=== PATIENT | male | born 1955 | race Caucasian/White ===

== ENCOUNTER 2024-01-22 10:13 | Emergency (ER) | payer OTHER ==
[2024-01-22 10:35] VITALS: BP 121/67; RESP 18; TEMP 99.1
--- NOTE | 2024-01-22 11:04 | ED ---
Back Pain HPI - General Chief Complaint: Back Pain/Injury Stated Complaint: Back pain Time Seen by Provider: 01/22/24 10:36 Source: family Limitations: no limitations - History of Present Illness Initial Comments: The patient is an otherwise healthy presents emergency room complaints of severe right lower back pain. Patient states that the pain was of gradual onset that started on January 09. He states that he was given a steroid Dosepak to help with the pain which it initially did hope with. Patient states that 3 days ago he knelt down on the floor and felt immediate severe pain. He has had severe pain since. The pain is in the right lower back and radiates down the right leg. He describes the pain down the leg as a burning pain. He denies any saddle anesthesia or loss of bowel or bladder control. He denies any foot drop. The pain is worse with movement especially sitting. Patient has a history of lower back pain and previous lumbar surgery over 10 years ago in [place]. He has not had any complications since and did not have chronic pain after the surg bc. Patient denies any chest pain palpitations or shortness breath. He denies any fevers, dysuria hematuria urinary frequency. He has had kidney stones in the past but states this feels different. Patient has an appointment with clinical product specialist tomorrow. He has been taking tramadol without improvement, Naprosyn and took a few doses of his 's gabapentin. The gabapentin seen to help with the pain more than the tramadol at times. Patient denies any palpable abdominal mass. - Related Data Home Medications Medication Instructions Recorded Confirmed Cholecalciferol [Vitamin D3 (25 25 mcg PO DAILY 01/22/24 01/22/24 Mcg = 1000 Iu)] Magnesium 250 mg PO DAILY 01/22/24 01/22/24 traMADol HCL 50 mg PO Q6H PRN 01/22/24 01/22/24 Previous Rx's Medication Instructions Recorded Cyclobenzaprine [Flexeril] 10 mg PO TID PRN #20 tab 01/22/24 Gabapentin [Neurontin] 100 mg PO TID 5 Days #15 cap 01/22/24 Lidocaine 5% Patch [Lidoderm] 1 each TP DAILY #10 patch 01/22/24 Naproxen [Naprosyn] 250 mg PO BID #48 tab 01/22/24 oxyCODONE-APAP 5-325MG [Percocet 1 tab PO Q6HR PRN 3 Days #12 tab 01/22/24 5-325 mg] Allergies Allergy/AdvReac Type Severity Reaction Status Date / Time meperidine [From Demerol] Allergy Rash/Hives Verified 01/22/24 13:49 Review of Systems ROS Statement: Those systems with pertinent positive or pertinent negative responses have been documented in the HPI. ROS Other: All systems not noted in ROS Statement are negative. Past Medical History Past Medical History: No Reported History History of Any Multi-Drug Resistant Organisms: None Reported Past Surgical History: Orthopedic Surgery Past Psychological History: No Psychological Hx Reported Smoking Status: Never smoker Past Alcohol Use History: None Reported Past Drug Use History: None Reported General Exam Limitations: no limitations General appearance: alert, in no apparent distress Head exam: Present: atraumatic Eye exam: Present: normal appearance, PERRL ENT exam: Present: normal exam Neck exam: Present: full ROM Respiratory exam: Present: normal lung sounds bilaterally Cardiovascular Exam: Present: regular rate GI/Abdominal exam: Present: soft Extremities exam: Present: full ROM Back exam: Present: tenderness (Pain over the right lumbar paraspinal muscle and right SI joint without any rash erythema or ecchymosis. Pain is worse with right straight leg test. EHL intact bilaterally. Neurologically intact), other Neurological exam: Present: alert, oriented X3, CN II-XII intact Psychiatric exam: Present: normal affect, normal mood Skin exam: Present: warm, dry Course Vital Signs 01/22/24 01/22/24 01/22/24 10:16 11:33 11:46 Temperature 99.1 F Pulse Rate 142 H 76 74 Respiratory 18 Rate Blood Pressure 121/67 O2 Sat by Pulse 98 95 90 L Oximetry - Reevaluation(s) Reevaluation #1: 01/22/24 1302 Patient is feeling much better after the IV Dilaudid. His heart rate significantly improved in the 70s with pain control. He was feeling well enough to want to eat after the pain medicine. Patient is neurologically intact. EHL is intact. He denies any saddle anesthesia or loss of bowel or bladder control therefore no MRI was ordered at today's visit. I did discuss lab and imaging results with patient. Patient does not want a CT of the abdomen or kidneys as he does not feel as though it is a kidney stone. He has had an x-ray in the past on January 09 for similar pain which did not show anything significant. He has an appointment with the clinical product specialist tomorrow and is hoping to have an MRI at the facility tomorrow. I did discuss signs return to the emergency room with the patient and . Discussed returning for any neurological symptoms or further complications.). Celexa history significant limitations. Given stretches to help with the sciatica as well. Patient's symptoms are and disposition were fully discussed with attending ED physician Dr. Mckeon today. Medical Decision Making - Medical Decision Making Was pt. sent in by a medical professional or institution (, PA, [employer], urgent care, hospital, or [facility]...) When possible be specific @ -[No] Did you speak to anyone other than the patient for history (EMS, parent, family, police, friend...)? What history was obtained from this source @ - at bedside Did you review nursing and triage notes (agree or disagree)? Why? @ -[I reviewed and agree with nursing and triage notes] Were old charts reviewed (outside hosp., previous admission, EMS record, old EKG, old radiological studies, urgent care reports/EKG's, [facility] records)? Report findings @ -[No old charts were reviewed] Differential Diagnosis (chest pain, altered mental status, abdominal pain women, abdominal pain men, vaginal bleeding, weakness, fever, dyspnea, syncope, headache, dizziness, GI bleed, back pain, seizure, CVA, palpatations, mental health, musculoskeletal)? @ -[Tachycardia, back pain, kidney stone, sciatica, muscle spasms, electrolyte abnormality UTI EKG interpreted by me (3pts min.). @ -[As above] X-rays interpreted by me (1pt min.). @ -[None done] CT interpreted by me (1pt min.). @ -[None done] U/S interpreted by me (1pt. min.). @ -[None done] What testing was considered but not performed or refused? (CT, X-rays, U/S, lab s)? Why? @ -[See however patient refused CT as he did not feel as though he had a kidney stone and had an x-ray of the lumbar spine on January 09 at minimal pain and there is no significant changes. He prefers to follow-up with ortho have an outpatient MRI. What meds were considered but not given or refused? Why? @ -[None] Did you discuss the management of the patient with other professionals (professionals i.e. Dr., PA, [employer], lab, RT, psych nurse, family welfare social work professor, documentation designer, teacher, property and supply officer, registered nurse hh case manager)? Give summary @ -Discussed management of this patient with attending ED physician Dr. Inocencia holley today. Was smoking cessation discussed for >3mins.? @ -[No] Was critical care preformed (if so, how long)? @ -[No] Were there social determinants of health that impacted care today? How? (Homelessness, low income, unemployed, alcoholism, drug addiction, transportation, low edu. Level, literacy, decrease access to med. care, longterm, rehab)? @ -[No] Was there de-escalation of care discussed even if they declined (Discuss DNR or withdrawal of care, Hospice)? DNR status @ -[No] What co-morbidities impacted this encounter? (DM, HTN, Smoking, COPD, CAD, Cancer, CVA, ARF, Chemo, Hep., AIDS, mental health diagnosis, sleep apnea, morbid obesity)? @ -[None] Was patient admitted / discharged? Hospital course, mention meds given and route, prescriptions, significant lab abnormalities, going to OR and other pertinent info. @ -[Patient is feeling much better with pain control. His heart rate significantly improved with pain control. I discussed lab results with the patient and follow-up with the PCP to have kidney function and blood sugars reevaluated for further testing. Discussed hydration. I discussed following up at his appointment tomorrow with clinical product specialist for further pain control and suspected MRI. Again patient did not want the CT done at this time as he felt as though is not necessary. I agree with this and they were given signs return to emergency room for worsening complicated. I discussed pain control at home and] included stretches that were shown in the emergency room. He understands he is not to work or trouble taking pain medication or muscle relaxer and history.). These medications not given at the same time. We discu ssed signs return to the emergency room including but not limited to foot drop, saddle anesthesia or new concerning symptoms. Undiagnosed new problem with uncertain prognosis? @ -[No] Drug Therapy requiring intensive monitoring for toxicity (Heparin, Nitro, Insulin, Cardizem)? @ -[No] Were any procedures done? @ -[No] Diagnosis/symptom? @ -Back pain, back spasms, sciatica, lumbar radiculopathy, renal insufficiency Acute, or Chronic, or Acute on Chronic? @ -[Acute Uncomplicated (without systemic symptoms) or Complicated (systemic symptoms)? @ -[default] Side effects of treatment? @ -[No] Exacerbation, Progression, or Severe Exacerbation? @ -[Exacerbation Poses a threat to life or bodily function? How? (Chest pain, USA, OR, pneumonia, PE, COPD, DKA, ARF, appy, cholecystitis, CVA, Diverticulitis, Homicidal, Suicidal, threat to staff... and all critical care pts) @ -[No] - Lab Data Result diagrams: 01/22/24 11:26 01/22/24 11:26 Lab Results 01/22/24 01/22/24 01/22/24 Range/Units 11:26 11:26 11:26 WBC 15.0 H (3.8-10.6) k/uL RBC 5.07 (4.30-5.90) m/uL Hgb 15.5 (13.0-17.5) gm/dL Hct 46.3 (39.0-53.0) % MCV 91.3 (80.0-100.0) fL MCH 30.7 (25.0-35.0) pg MCHC 33.6 (31.0-37.0) g/dL RDW 13.2 (11.5-15.5) % Plt Count 234 (150-450) k/uL MPV 7.6 Neutrophils % 89 % Lymphocytes % 7 % Monocytes % 3 % Eosinophils % 0 % Basophils % 0 % Neutrophils # 13.4 H (1.3-7.7) k/uL Lymphocytes # 1.0 (1.0-4.8) k/uL Monocytes # 0.5 (0-1.0) k/uL Eosinophils # 0.0 (0-0.7) k/uL Basophils # 0.0 (0-0.2) k/uL Sodium 136 L (137-145) mmol/L Potassium 3.7 (3.5-5.1) mmol/L Chloride 103 (98-107) mmol/L Carbon Dioxide 23 (22-30) mmol/L Anion Gap 10 mmol/L BUN 25 H (9-20) mg/dL Creatinine 1.32 H (0.66-1.25) mg/dL Est GFR (CKD-EPI)AfAm 64 (>60 ml/min/1.73 sqM) Est GFR (CKD-EPI)NonAf 55 (>60 ml/min/1.73 sqM) Glucose 143 H (74-99) mg/dL Calcium 10.3 H (8.4-10.2) mg/dL Magnesium 1.8 (1.6-2.3) mg/dL Total Bilirubin 0.6 (0.2-1.3) mg/dL AST 28 (17-59) U/L ALT 29 (4-49) U/L Alkaline Phosphatase 108 (38-126) U/L Total Protein 6.6 (6.3-8.2) g/dL Albumin 3.9 (3.5-5.0) g/dL Urine Color Light Yellow Urine Appearance Clear (Clear) Urine pH 6.0 (5.0-8.0) Ur Specific Mchenry 1.019 (1.001-1.035) Urine Protein Trace H (Negative) Urine Glucose (UA) 3+ H (Negative) Urine Ketones Trace H (Negative) Urine Blood Trace H (Negative) Urine Nitrite Negative (Negative) Urine Bilirubin Negative (Negative) Urine Urobilinogen <2.0 (<2.0) mg/dL Ur Leukocyte Esterase Negative (Negative) Urine RBC 3 (0-5) /hpf Urine WBC 1 (0-5) /hpf Ur Squamous Epith Cells <1 (0-4) /hpf Urine Bacteria Rare H (None) /hpf Urine Mucus Few H (None) /hpf - EKG Data -: EKG Interpreted by [facility] - Radiology Data Radiology results: report reviewed, image reviewed Disposition Clinical Impression: Back pain, Sciatica, Renal insufficiency Disposition: HOME SELF-CARE Condition: Good Instructions (If sedation given, give patient instructions): Sciatica (ED), Acute Low Back Pain (ED), Lumbar Radiculopathy (ED), Lower Back Exercises (ED), Hamstring Exercises (ED) Additional Instructions: DO NOT WORK OR DRIVE WHILE TAKING PAIN MEDICATION OR MUSCLE RELAXER STAGGER THE DOSING OF PERCOCET AND FLEXERIL. DO NOT TAKE THEM AT THE SAME TIME RETURN FOR ANY LOSS OF BOWEL OR BLADDER CONTROL, FEVERS, FOOT DROP, UNCONTROLLED PAIN OR NEW CONCERNING SYMPTOMS. Prescriptions: Cyclobenzaprine [Flexeril] 10 mg PO TID PRN #20 tab PRN Reason: Muscle Spasm Lidocaine 5% Patch [Lidoderm] 1 each TP DAILY #10 patch Naproxen [Naprosyn] 250 mg PO BID #48 tab Gabapentin [Neurontin] 100 mg PO TID 5 Days #15 cap oxyCODONE-APAP 5-325MG [Percocet 5-325 mg] 1 tab PO Q6HR PRN 3 Days #12 tab PRN Reason: Pain Is patient prescribed a controlled substance at d/c from ED?: Yes When asked, does pt state using other controlled substances?: No If prescribed controlled substance>3 days was MAPS reviewed?: Prescribed <3 Days If opioid is for acute pain is fill amount 7 days or less?: No If Rx opioid, was Start Talking consent form obtained?: No Referrals: None,Stated [Primary Care Provider] - 1-2 days Scooby Lees MD [STAFF PHYSICIAN] - 1-2 days Time of Disposition: 13:48
[2024-01-22] MEDS: HYDROmorphone 1 MG/ML 1 ML SYRINGE IVP STA ×2 (11:23→14:41)
[2024-01-22] MEDS: SODIUM CHLORIDE 0.9% 500 ML 500 ML IV STA (11:27)
[2024-01-22 11:42] LABS: Basophils % (A) 0 %; Eosinophils % (A) 0 %; HCT 46.3 % (39.0-53.0); HGB 15.5 gm/dL (13.0-17.5); Lymphocytes % (A) 7 %; MCH 30.7 pg (25.0-35.0); MCHC 33.6 g/dL (31.0-37.0); MCV 91.3 fL (80.0-100.0); Mean Platelet Volume 7.6; Monocytes # (A) 0.5 k/uL (0-1.0); Monocytes % (A) 3 %; Neutrophils # (A) 13.4 k/uL (1.3-7.7); Neutrophils % (A) 89 %; Platelet Count 234 k/uL (150-450); RBC 5.07 m/uL (4.30-5.90); RDW 13.2 % (11.5-15.5)
[2024-01-22 11:54] LABS: ALT 29 U/L (4-49); AST 28 U/L (17-59); African American GFR (CKD) 64 (>60 ml/min/1.73 sqM); Albumin 3.9 g/dL (3.5-5.0); Alkaline Phosphatase 108 U/L (38-126); Anion Gap 10 mmol/L; Blood Urea Nitrogen 25 mg/dL (9-20); Calcium 10.3 mg/dL (8.4-10.2); Carbon Dioxide 23 mmol/L (22-30); Chloride 103 mmol/L (98-107); Glucose 143 mg/dL (74-99); Magnesium 1.8 mg/dL (1.6-2.3); Non-African American GFR(CKD) 55 (>60 ml/min/1.73 sqM); Potassium 3.7 mmol/L (3.5-5.1); Sodium 136 mmol/L (137-145); Total Bilirubin 0.6 mg/dL (0.2-1.3); Total Protein 6.6 g/dL (6.3-8.2)
[2024-01-22 12:11] VITALS: PULSE 74
[2024-01-22 12:49] LABS: Appearance,Urine Clear (Clear); Bacteria,Urine Rare /hpf; Bilirubin,Urine Negative (Negative); Blood,Urine Trace (Negative); Color,Urine Light Yellow; Glucose,Urine (UA) 3+ (Negative); Ketones,Urine Trace (Negative); Leukocyte Esterase,Urine Negative (Negative); Mucus,Urine Few /hpf; Nitrite,Urine Negative (Negative); Protein,Urine Trace (Negative); RBC,Urine 3 /hpf (0-5); Specific Gravity,Urine 1.019 (1.001-1.035); Squamous Epithelial Cell,Urine <1 /hpf (0-4); Urobilinogen,Urine <2.0 mg/dL (<2.0); WBC,Urine 1 /hpf (0-5)
== END 2024-01-22 15:00 | disposition home or self-care (01) ==
LOC: EC 10:13
DX: M54.41 Lumbago with sciatica, right side (principal); N28.9 Disorder of kidney and ureter, unspecified; M54.16 Radiculopathy, lumbar region; M62.830 Muscle spasm of back; Z88.5 Allergy status to narcotic agent
CPT/HCPCS: 36415; 93005; 80053; 83735; 85025; 81001; 99284; 96374; 96375; 96376; 96361; J3360; J1170